=== PATIENT | female | born 1935 | race Caucasian/White ===

== ENCOUNTER 2019-05-28 14:33 | Inpatient (IN) | payer OTHER ==
[~2019-05-28] VITALS: Ht 144.8 cm; Wt 65.5 kg
[2019-05-28] MEDS ORDERED: ZITHROMAX250 MG (15:47)
[2019-05-28] MEDS ORDERED: COLACE100 MG PO (15:50)
[2019-05-28] MEDS ORDERED: PERIDEX15 ML PO (15:50)
[2019-05-28] MEDS ORDERED: CYCLOBENZAPRINE10 MG PO (15:51)
[2019-05-28] MEDS ORDERED: IPRAT-ALBUT 0.5-3 ML NEB (15:54)
[2019-05-28] MEDS ORDERED: NAPROXEN SODIU220 M2 PO (15:55)
[2019-05-28] MEDS ORDERED: ZESTRIL10 MG PO (15:55)
[2019-05-28] MEDS ORDERED: NYSTATIN15 G2 TOP (15:56)
[2019-05-28] MEDS ORDERED: PERCOCET 5-3251 EACH PO (15:58)
[2019-05-28] MEDS ORDERED: PROBIOTIC1 EAC7 PO (15:59)
[2019-05-28] MEDS ORDERED: PAIN & FEVER325 MG PO (16:00)
[2019-05-28 17:20] VITALS: BP 143/53
--- NOTE | 2019-05-28 18:43 | NUR ---
PATIENT A DIRECT ADMIT FROM [facility] FOR NSTEMI AND ELVATED TROPONIN. WITH A RECENT RIGHT HIP REPAIN ON 05/09/19. [facility] SHE IS A DNR OUTSIDE THE HOSPITAL. A/OX4, 4 L NC WITH DEMINISHED LUNGS AND NON PRODUCTIVE COUGH. ASSIST 1-2 transfer to commode. NSR ON TELE. ADMISSION HISTORY AND ASSESMENT COMPLETED. DR WOOTEN CONSULTED WITH NO NEED TO CALL ON TROPONIN MORTGAGE LOAN OFFICER ORIGINATOR WILL ROUND ON PATIENT IN THE MORNING. FALL PRECAUTION IN PLACE AND CALL LIGHT IN REACH. FAMILY BEDSIDE AT THIS TIME.
[2019-05-28 19:28] LABS: URINE BILIRUBIN NEGATIVE (Negative); URINE BLOOD TRACE (Negative); URINE CLARITY CLEAR; URINE COLOR YELLOW; URINE GLUCOSE-RANDOM* NEGATIVE (Negative); URINE KETONES TRACE (Negative); URINE LEUKOCYTES-REFLEX NEGATIVE (Negative); URINE NITRITE-REFLEX NEGATIVE (Negative); URINE PROTEIN (DIPSTICK) TRACE (Negative); URINE SPECIFIC GRAVITY 1.025 (1.005-1.035); URINE UROBILINOGEN 0.2 E.U./dl (0.2-1.0)
[2019-05-28 20:19] VITALS: BP 129/93
[2019-05-29] VITALS (7 sets, daily range): BP systolic 106–123; BP diastolic 42–90
[2019-05-29 06:09] LABS: ALBUMIN 2.6 g/dL (3.4-5.0); CALCIUM 9.4 mg/dL (8.5-10.1); CREATININE 0.7 mg/dL (0.6-1.0); PHOSPHORUS 3.9 mg/dL (2.5-4.9); POTASSIUM 4.8 mmol/L (3.5-5.1); TROPONIN-I 0.2 ng/mL (<0.06)
--- NOTE | 2019-05-29 08:57 | 2DMMODE ---
[facility] [address] [place] [address] 2 D/M-MODE ECHOCARDIOGRAM Name: WALLY DIEHL Room #: 219-P ADM IN M.R.#: [id number] Admission: 05/28/19 Attend Phys: Han Stevens, Discharge: Date of : 35 Report #: [id number] THIS REPORT FOR: //name// APPROVED REPORT Study performed: 05/29/2019 06:49:32 EXAM: Comprehensive 2D, Doppler, and color-flow Echocardiogram Patient Location: Bedside Room #: 219 Status: routine BSA: 1.57 HR: 73 bpm BP: 107/42 mmHg Rhythm: NSR Other Information Study Quality: Adequate/unable to position patient. Limited cooperation. Indications NSTEMI. Elevated troponin, hypoxemia. 2D Dimensions RVDd: 32.16 mm IVSd: 9.75 (7-11mm) LVOT Diam: 19.27 (18-24mm) LVDd: 46.15 mm PWd: 8.21 (7-11mm) Ascending Ao: 33.81 (22-36mm) LVDs: 26.51 (25-40mm) Aortic Root: 32.56 mm Volumes Left Atrial Volume (Systole) Single Plane 4CH: 21.27 mL Single Plane 2CH: 27.00 mL LA ESV Index: 16.00 mL/m2 Aortic Valve AoV Peak Alonso.: 1.73 m/s AO Peak Gr.: 11.99 mmHg LVOT Max P.93 mmHg LVOT Max V: 1.11 m/s GOPI Vmax: 1.87 cm2 Mitral Valve E/A Ratio: 0.7 MV Decel. Time: 283.[address] [facility] [address] [place] [address] 2 D/M-MODE ECHOCARDIOGRAM Name: BRENNAN DIEHLRICFARAZ Martinez Room #: 219-P [facility] IN [facility].#: [id number] Admission: 05/28/19 Attend Phys: Han Stevens, Discharge: Date of : 35 Report #: [id number] E Max Alonso.: 0.93 m/s MV A Alonso.: 1.27 m/s MV PHT: 82.25 ms IVRT: 86.51 ms Pulmonary Vein P Vein S: 0.45 m/s P Vein A: 0.39 m/s P Vein D: 0.25 m/s P Vein A Dur.: 103.8 msec P Vein S/D Ratio: 1.80 Tricuspid Valve TR Peak Alonso.: 3.32 m/s RAP Estimate: 10.00 mmHg TR Peak Gr.: 44.00 mmHg PA Pressure: 54.00 mmHg Left Ventricle The left ventricle is normal size. There is normal LV segmental wall motion. There is normal left ventricular wall thickness. Left ventricular systolic function is normal. LVEF is 60-65%. Mild diastolic dysfunction is present (impaired relaxation pattern). Right Ventricle The right ventricle is normal size. The right ventricular systolic function is normal. Atria The left atrium size is normal. The right atrium size is normal. Aortic Valve The aortic valve leaflets are mildly thickened. No aortic regurgitation is present. There is no aortic valvular stenosis. Mitral Valve Mild mitral annular calcification. There is no mitral valve regurgitation noted. No evidence of mitral valve stenosis. Tricuspid Valve The tricuspid valve is normal in structure. Moderate tricuspid regurgitation. Estimated PAP is 50-55mmHg. Pulmonic Valve Pulmonic valve is not well visualized. [facility] [address] [place] [address] 2 D/M-MODE ECHOCARDIOGRAM Name: WALLY DIEHL Room #: 219-P [facility] IN M.R.#: [id number] Admission: 05/28/19 Attend Phys: Han Stevens, Discharge: Date of : 35 Report #: [id number] Great Vessels The aortic root is normal in size. The ascending aorta is normal in size. IVC is normal in size and collapses >50% with inspiration. Pericardium There is no pericardial effusion. <Conclusion> Left ventricular systolic function is normal. There is normal LV segmental wall motion. LVEF is 60-65%. Mild diastolic dysfunction The aortic valve leaflets are mildly thickened. No aortic regurgitation or stenosis. Mild mitral annular calcification. No mitral valve regurgitation. Moderate tricuspid regurgitation. Estimated pulmonary artery pressure of 50-55mmHg. There is no pericardial effusion. <ELECTRONICALLY SIGNED> By: Joaquin Winslow MD, FACC 05/29/19855 5 5 Joaquin Winslow MD, FACC /INF
--- NOTE | 2019-05-29 09:40 | NUR ---
RD consult received for poor intake. Pt newly admitted with acute respiratory failure, NSTEMI. Recent hip repair 05/09. NPO and pending ST evaluation. No Code status. Will followup again 1/ for appropriate nutrition interventions.
--- NOTE | 2019-05-29 10:08 | EKG ---
[address] [place] [address] ELECTROCARDIOGRAM REPORT Name: WALLY DIEHL Room #: 219-P ADM IN M.R.#: [id number] Admission: 05/28/19 Attend Phys: Han Stevens MD Discharge: Date of : 35 Report #: [id number] THIS REPORT FOR: //name// [facility] Test Date: 2019-05-29 Test Time: 07:59:59 Pat Name: WALLY DIEHL Department: Room: 219 P Gender: F Acquisition Associate: JOSE : 1935 Requested By: Maya Leal Order Number: [id number] MD: Joaquin Winslow Measurements Intervals [place] Rate: 74 P: 60 HI: 169 QRS: -26 QRSD: 103 T: -66 QT: 415 QTc: 461 Interpretive Statements Sinus rhythm Borderline left axis deviation Probable anterior infarct, age indeterminate No previous ECG available for comparison Electronically Signed On 05-29-2019 10:07:30 [employer] INSTALLER by Joaquin Winslow [email or web address] <ELECTRONICALLY SIGNED> By: Joaquin Winslow MD, [facility] 05/29/19 [facility] [id number] Joaquin Winslow MD, FAC /EPI
--- NOTE | 2019-05-29 13:09 | NUR ---
Met with patient and son at bedside. patient admits from [facility] with PNA, hypoxia SOA. Patient with recent hip fx and was rec skilled care at [facility]. Sp with [facility] they will need to submit for auth again. Plan for therapy evals. No planned dc tomorrow.
--- NOTE | 2019-05-29 16:43 | NUR ---
FAXED CLINICAL UPDATE TO [facility] RECEIVED CONFIRMATION AND LEFT MSG WITH ADM. WILL F/U WITH FACILITY ON Tuesday05/31/19.
--- NOTE | 2019-05-29 19:43 | NUR ---
ASSUMED CARE PT SHIFT CHANGE. ASSESSMENTS CHARTED. MEDS GIVEN PER JUL. PT ALERT AND ORIENTED X2, FORGETFUL AT TIMES. VSS, DENIES PAIN. O2 SATS WNL ON 3L O2. RIGHT HIP INCISIONS HEALING. PT WORKED WITH PHYS THERAPY THIS SHIFT TOLERATING WELL. PT IS 50% WEIGHT BEARING ON RIGHT LEG. PT UNABLE TO URINATE THIS SHIFT, PHYSICIAN NOTIFIED, ORDERS RECEIVED TO STRAIGHT CATH PT, SUCCESSFUL WITH 600 ML OUT. PT NPO THIS AM AND EVALUATED BY SPEECH, WITH NO S/SX OF ASPIRATION. SEE SPEECH NOTE FOR FULL ASSESSMENT. PT ON [facility] GROUND DIET, TOLERATING FAIR. PT APPETITE LESS THAN ADEQUATE. REFUSED DINNER. PT CURRENTLY RESTING IN BED. WILL CONT TO MONITOR AND FOLLOW POC.
--- NOTE | 2019-05-30 05:18 | NUR ---
ASSESSMENTS CHARTED, PAIN MEDS CHARTED. PATIENT ASKED TO URINATE AT THE START OF THE SHIFT, BUT WAS UNABLE TO START A STREAM. BLADDER SCAN SHOWED 23ML IN BLADDER. PATIENT IS AGITATED AND CAN NOT GET COMFORTABLE. PAIN MEDICINE DID NOT TOUCH THE PAIN. SPOKE WITH DEA MARTIN. FOR NEW SCRIPT. PATIENT MOANING AND VERY RESTLESS. CAN NOT GET COMFORTABLE NEW PAIN MED CALMS HER PARTIALLY FOR 30 MINUTES THEN BACK TO PREVIOUS LEVEL. BLADDER SCANNED HER AGAIN, THIS TIME IT SHOWED 230ML. PATIENT HAD BOUT OF INCONTINENCE. CLEANED HER AND REPOSITIONED HER.
[2019-05-30 06:44] VITALS: BP 146/62
[2019-05-30 09:30] VITALS: BP 142/73
[2019-05-30 12:35] VITALS: BP 145/56
[2019-05-30 16:24] VITALS: BP 133/59
--- NOTE | 2019-05-30 16:49 | NUR ---
ASSUMMED PT CARE AT APPROXIMATELY 0700. PT ALERT AND ORIENTED TO HERSELF. RECIEVED AT REPORT THAT THIS IS PT'S BASELINE. FREQUENT REORIENTATION PROVIDED. PT DENIES HAVING CHEST PAIN. PT DENIES HAVING SOB. PT STATED SHE HAD ACUTE PAIN IN HER R HIP. PT RECEIVED ANALGESICS. ANALGESICS HELPED RELEIVE PT'S PAIN. PT HAS BEEN VOIDING THROUGHOUT THE SHIFT- NO S/S OF URINE RETENTION. VITAL SIGNS STABLE. EDUCATED PT AND PT'S FAMILY ABOUT POC. PT AND PT'S FAMILY STATED UNDERSTANDING AND DENIED HAVING FURTHER CONCERNS. PT COMFORTABLE IN BED. PT DENIES HAVING FURTHER CONCERNS.
[2019-05-30 20:48] VITALS: BP 131/68
[2019-05-31 04:45] VITALS: BP 147/50
--- NOTE | 2019-05-31 05:10 | NUR ---
ASSUMED CARE OF PATIENT AT 1900. VSS, AFEBRILE. ALERT TO SELF, FORGETFUL AND CONFUSED. INCONTINENT OF URINE. C/O PAIN, TREATED WITH TRAMADOL. SLEEPING ON AND OFF. FREQUENTLY REMOVES NC FOR O2. DESATS SIGNIFICANTLY WHEN O2 IS OFF. NEEDS FREQUENT REORIENTING AND MONITORING. NOT PROGRESSING TOWARDS POC GOALS.
[2019-05-31 05:52] LABS: CALCIUM 9.4 mg/dL (8.5-10.1); CREATININE 0.6 mg/dL (0.6-1.0); POTASSIUM 4.6 mmol/L (3.5-5.1); TROPONIN-I 0.08 ng/mL (<0.06)
[2019-05-31 08:58] VITALS: BP 141/64
[2019-05-31] MEDS ORDERED: LEVAQUIN 500 M500 M2 PO (09:06)
[2019-05-31] MEDS ORDERED: CYCLOBENZAPRINE10 MG PO (09:07)
[2019-05-31] MEDS ORDERED: TRAMADOL 50 MG50 MG PO (09:08)
[2019-05-31] MEDS ORDERED: SENOKOT-S TABL1 EACH PO (09:08)
--- NOTE | 2019-05-31 14:38 | NUR ---
Dc business planner faxed updated clinical notes and [facility] tx [facility] Pt noted stable for dc to snf today pending ins auth. All parties updated. Auth request submited per Vian[facility]. Possible dc this afternoon if auth obtained. Chart copy in progress. The pt is aware and will need w/c van with o2 for transport.
[2019-05-31 16:00] VITALS: BP 153/90
--- NOTE | 2019-05-31 16:27 | NUR ---
FAXED CLINICAL UPDATE AND PT/OT NOTES FROM TODAY TO [facility] TO SUBMIT FOR AUTH FOR SKILLED STAY SPOKE WITH [facility] IN ADM SHE RECEIVED INFO AND IS WTG ON AUTH. DP TO FOLLOW.
--- NOTE | 2019-05-31 17:28 | NUR ---
ASSUMMED PT CARE AT APPROXIMATELY 0700. PT AWAKE AND ORIENTED TO SELF. PT'S BASELINE. ASSESSMENT CHARTED. FALL PRECAUTIONS IN PLACE. PT DENIES HAVING CHEST PAIN. PT DENIES HAVING SOB. PT DOES OCCASIONALLY SHOUT OUT STATING HER R HIP HURTS. PT RECEIVED ANALGESICS. PT STATED ANALGESICS HELPS RELIEVE PAIN. PT AND PT'S FAMILY EDUCATED ABOUT POC. PT AND PT'S FAMILY STATED UNDERSTANDNING AND DENIES HAVING FURTHER CONCERNS. PT HAD LARGE FORMED BM. PER SOCIAL WORK, INSURANCE HAS TO CLEAR PT TO GO BACK TO [facility]. SOCIAL WORK STATED SHE HAS NOT HEARD BACK FROM PT'S INSURANCE. PT COMFORTABLE IN BED. PT DENIES HAVING FUTHER CONCERNS. VITAL SIGNS STABLE. PT UP TO CHAIR THROUGHOUT SHIFT.
[2019-05-31 19:49] VITALS: BP 163/73
[2019-06-01 04:53] VITALS: BP 171/80
--- NOTE | 2019-06-01 04:58 | NUR ---
ASSUMED PT CARE AT 1900, PT IS ALERT AND ORIENTED TO PERSON, BP ELEVATED AT THE BEGINNING OF THE SHIFT, MEDICATION GIVEN, BP STABLE AT THIS TIME, COMPALINED OF PAIN AT THE HIP, PAIN MEDICATION GIVEN WITH PARTIAL RELIEF, SR ON THE MONITOR, PT RESTING AT THE MOMENT, WILL CONTINUE TO MONITOR
[2019-06-01 08:00] VITALS: BP 167/72
[2019-06-01 11:50] VITALS: BP 175/104
--- NOTE | 2019-06-01 13:38 | NUR ---
[facility]ianca at [facility] indicates that pt's ins plan with [employer] has lapsed on 05/29/19. Ins verified with [place] CM and medicare system as [employer] Medicare plan beginning 05/30/19. Pt confirms she switched to the [employer] plan. Son at bedside and reports they do not have a new card or access to her mail today. Ins cm will be the same [place] case mngt and she is reviewing the snf auth request. [facility] updated per the dc tool planner. Pt and son updated at bedside and care team aware. All parties are anticipating dc to snf today if auth obtained.
--- NOTE | 2019-06-01 14:56 | NUR ---
FAXED UPDATED DC ORDERS TO [facility] SPOKE WITH DARCI IN ADM SHE RECEIVED ORDERS.
--- NOTE | 2019-06-01 17:12 | NUR ---
PATIENT ORIENT TO SELF, AND PLACE. ANXIOUS AND RESTLESS. PAIN MANAGED WITH MEDICATIONS, 3L OXYGEN, REPOSITIONED TOLERATED. UP TO CHAIR AND ABLE TO SLEEP FOR AN HOUR. DISCHARGED TO SKILLED REPORTED GIVEN TO RANDI CATALAN FROM FACILITY. TELE MONITOR AND IV REMOVED. FAMILY BEDSIDE THIS SHIFT.
== END 2019-06-01 17:27 | DRG 280 ==
LOC: 2N 14:33
PROVIDERS: Nurse Practitioner; ADMIT Hospitalist
DX: I21.A1 Myocardial infarction type 2 (principal); J18.9 Pneumonia, unspecified organism; J96.01 Acute respiratory failure with hypoxia; I10 Essential (primary) hypertension; Z66 Do not resuscitate; I69.911 Memory deficit following unspecified cerebrovascular disease; Z96.641 Presence of right artificial hip joint; Z79.2 Long term (current) use of antibiotics; Z79.891 Long term (current) use of opiate analgesic; Z79.899 Other long term (current) drug therapy; Z87.891 Personal history of nicotine dependence; Z91.81 History of falling; Z79.82 Long term (current) use of aspirin
CPT/HCPCS: 10081; 10797